=== PATIENT | male | born 1960 | race Caucasian/White ===

== ENCOUNTER → 2018-03-23 11:25 | Outpatient (CLI) | payer OTHER, SELFPAY ==
[2018-03-23 12:26] LABS: Add Manual Diff / Slide Review NO; Basophils Percent Auto 0.8 % (0-2); Eosinophils Percent Auto 3.4 % (2-4); Hematocrit 46.6 % (41-53); Hemoglobin 16.3 g/dL (13.5-17.5); Lymphocytes Percent Auto 31.9 % (25-40); Mean Corpuscular Hemoglobin 33.5 PG (26-34); Mean Corpuscular Volume 95.8 fL (80-100); Monocytes Percent Auto 9.5 % (3-14); Neutrophils Absolute Auto 4800 /uL (3000-5900); Neutrophils Percent Auto 54.4 % (50-75); Platelet Count 183 X10^3/uL (150-400); Red Blood Cell Count 4.86 X10^6/uL (4.5-5.9); Red Cell Distribution Width 14.7 % (11.6-14.8); White Blood Cell Count 8.9 X10^3/uL (4.5-11.0)
[2018-03-23 12:47] LABS: Alanine Aminotransferase 64 IU/L (21-72); Albumin 3.9 g/dL (3.5-5.0); Albumin Globulin Ratio 1.2 (1.0-2.8); Alkaline Phosphatase 58 U/L (38-126); Aspartate Aminotransferase 31 IU/L (17-59); BUN Creatinine Ratio 24.4 (6-22); Bilirubin Total 1.2 mg/dL (0.2-1.3); Calcium 8.9 mg/dL (8.4-10.2); Estimated Glomerular Filt Rate > 60.0 mL/min (>60); Globulin 3.2 g/dL (1.7-4.1); Glucose 110 mg/dL (70-100); HEMOLYSIS < 15 (0-50); Potassium 4.7 mmol/L (3.4-5.1); Sodium 136 mmol/L (137-145); Total Protein 7.1 g/dL (6.3-8.2)
== END ==
PROVIDERS: Family Provider Family Medicine; PCP Family Medicine; Visit Provider Family Medicine
DX: I10 Essential (primary) hypertension (principal)
CPT/HCPCS: 36415; 80053; 85025

== ENCOUNTER 2018-05-09 10:43 | Inpatient (IN) | payer OTHER, SELFPAY ==
[2018-05-09] VITALS (25 sets, daily range): BP systolic 91–145; BP diastolic 55–106; PULSE 105–168; RESP 23–38; TEMP 36.2–36.8; O2SAT 91–98; BMI 56.7
--- NOTE | 2018-05-09 | DI.ECHO.S_ITS ---
[facility]---------+ [facility] +---------+ : : [address] : [place] : : : : [id number] : : : : Phone: [phone] Echocardiogram Report + + :Name: CARLA JIMÉNEZ Study Date: 05/09/2018 Height: 175 in : :[facility] Exam Location: [facility] Weight: 174 lb : : Gender: Male BSA: 3.8 m2 : :: 1960 Age: 57 yrs BP: 111/66 mmHg: :Reason For Study: Atrial fibrillation : :Ordering Physician: Krunal : :Jael Performed By: Luz Maria Page : + + Interpretation Summary The patient was in atrial fibrillation with heart rates between 92-125 bpm during the exam. The left ventricle is normal in size. The ejection fraction is estimated to be 40-45%. Flattened septum is consistent with RV pressure overload. The right ventricle is moderate to severely dilated. Right ventricular systolic function is moderate to severely reduced. There is mild tricuspid regurgitation. The right ventricular systolic pressure is estimated at 41 mmHg assuming a right atrial pressure of 15 mm Hg. Findings were reported to ICU nurse. Procedure: A two-dimensional transthoracic echocardiogram with color flow and Doppler was performed. The study quality was technically difficult. There is no prior echocardiogram noted for this patient. A contrast injection of Definity was performed to improve assessment of LV function. The patient was in atrial fibrillation with heart rates between 92-125 bpm during the exam. Left Ventricle: The left ventricle is normal in size. There is normal left ventricular wall thickness. There is no thrombus. The ejection fraction is estimated to be 40-45%. Flattened septum is consistent with RV pressure overload. Diastolic function could not be accurately assessed due to atrial fibrillation. Right Ventricle: The right ventricle is not well visualized. The right ventricle is moderate to severely dilated. Right ventricular systolic function is moderate to severely reduced. Atria: Both atria are normal in size. There is no Doppler evidence for an interatrial shunt. Mitral Valve: There is mild mitral annular calcification. There is trace mitral regurgitation. Aortic Valve: The aortic valve is trileaflet. The aortic valve opens well. The aortic valve is slightly calcified. There is no aortic valve stenosis. No aortic regurgitation is present. Tricuspid Valve: The tricuspid valve is not well visualized, but is grossly normal. There is mild tricuspid regurgitation. The right ventricular systolic pressure is estimated at 41 mmHg assuming a right atrial pressure of 15 mm Hg. Pulmonic Valve: The pulmonic valve is not well visualized. Great Vessels: The aortic root is normal size. The ascending aorta is normal in size. The aortic arch could not be visualized. The pulmonary is not well visualized. The IVC is dilated (diameter is greater than 2.1 cm) and it collapses less than 50% with a sniff. This suggests a high right atrial pressure of 15 mm Hg. Pericardium/ Pleura There is no pericardial effusion. There is no pleural effusion. MMode/2D Measurements & Calculations LVIDd: 5.2 cm LVOT diam: 2.1 cm LVIDs: 4.0 cm Ao root diam: 3.3 cm FS: 22.9 % asc Aorta Diam: 3.2 cm EPSS: 0.40 cm IVSd: 1.0 cm LVPWd: 0.70 cm LV macdonald. diameter/BSA (cm/m^2): 1.4 LV sys. diameter/BSA (cm/m^2): 1.0 LA A2 area: 27.6 cm2 RA long axis: 5.8 cm LA A4 area: 28.9 cm2 RA area: 27.4 cm2 LA length (vol): 6.9 cm RA vol: 110.2 ml LA vol: 98.1 ml RA : 28.8 ml/m2 LA vol index: 25.7 ml/m2 IVC diam: 2.8 cm Doppler Measurements & Calculations Ao V2 max: 102.9 cm/sec LVOT Max Ric: 70.1 cm/sec Ao V2 mean: 74.9 cm/sec LV V1 max P.0 mmHg Ao max P.2 mmHg LV V1 VTI: 8.5 cm Ao mean P.4 mmHg NEELAM(I,D): 2.5 cm2 Ao V2 VTI: 12.1 cm NEELAM(V,D): 2.4 cm2 sev ratio: 0.70 NEELAM indexed to BSA (cm^2/m^2): 0.64 MV E max ric: 76.6 cm/sec TR max ric: 221.6 cm/sec Med Peak E' Ric: 5.6 cm/sec TR max P.7 mmHg E/E' med: 13.6 PA V2 max: 56.1 cm/sec Lat Peak E' Ric: 9.7 cm/sec PA V2 mean: 33.3 cm/sec E/E' lat: 7.9 PA mean P.50 mmHg E/e' average: 10.7 PA Accel Time: 0.05 sec MV P1/2t: 53.6 msec MV P1/2t max ric: 77.3 cm/sec MVA(P1/2t): 4.1 cm2 Reading Physician:ELIEZER
--- NOTE | 2018-05-09 10:45 | ED.GENADULT ---
HPI - General Adult General Chief complaint: Shortness of Breath/Dyspnea Stated complaint: SHORTNESS OF BREATH,DIZZY,IRREGULAR HEART RATE Time Seen by Provider: 05/09/18 10:44 Source: patient Mode of arrival: ambulatory Limitations: no limitations History of Present Illness HPI narrative: 57-year-old male here for evaluation of not feeling well. Approximately 1 week ago patient was seen by his primary doctor for shortness of breath and was diagnosed with bronchitis. he was given azithromycin which she has completed. He states that for the past week he has not felt very well and over the past 4 days has been worsening with significant worsening 2 days ago. Patient states that over the past week or so he has not been able to climb the stairs in his house without becoming short of breath. He has denies any chest pain or palpitations. No fevers. Related Data Home Medications Medication Instructions Recorded Confirmed aspirin [Aspir-81] 81 mg PO DAILY 05/09/18 05/09/18 fluticasone 1 applic INTRANASAL DAILY 05/09/18 05/09/18 Previous Rx's Medication Instructions Recorded hydrochlorothiazide 50 mg PO QDAY #90 tab 07/22/17 losartan [Cozaar] 50 mg PO QDAY #90 tab 07/22/17 Allergies Allergy/AdvReac Type Severity Reaction Status Date / Time No Known Drug Allergies Allergy Verified 05/09/18 11:32 Review of Systems Constitutional Denies chills, Reports fatigue, Denies fever(s), Denies headache(s) and Reports malaise Eyes Denies blurry vision and Denies diplopia ENT Ears, Nose, Mouth, and Throat: Denies headache(s) Cardiovascular Denies chest pain, Denies chest pain with activity, Reports diaphoresis, Denies syncope, Denies rapid heart rate, Denies pedal edema, Denies irregular heart rhythm, Denies palpitations, Reports dyspnea and Reports dyspnea on exertion Respiratory Denies change in phlegm color, Denies chest congestion, Reports cough, Reports dyspnea, Reports dyspnea on exertion and Denies wheezing Gastrointestinal Gastrointestinal: Denies abdominal pain, Denies constipation, Denies diarrhea, Denies nausea and Denies vomiting Genitourinary Denies dysuria and Denies flank pain Musculoskeletal Denies abnormal gait, Denies myalgias and Denies arthralgias Integumentary/Breasts Denies lesions, Denies rash and Denies wounds Neurologic Denies abnormal gait, Denies behavioral changes, Denies syncope, Denies headache(s), Denies focal weakness and Denies sensory deficit Psychiatric Denies behavioral changes Endocrine Reports fatigue, Denies polyuria and Denies palpitations Hematologic/Lymphatic Denies easy bleeding and Denies easy bruising Allergic/Immunologic Denies urticaria and Denies wheezing FOR[facility]LY [facility], [facility] Medical History Hypertension (Acute) Morbid obesity (Acute) Surgical History History of left knee replacement (Acute ~2007) History of right knee joint replacement (Acute ~2017) Social History Smoking Status: Never smoker Exam Initial Vital Signs Initial Vital Signs: Vital Signs Temperature 97.8 F 05/09/18 10:45 Pulse Rate 137 H 05/09/18 10:45 Respiratory Rate 38 H 05/09/18 10:45 Blood Pressure 123/96 H 05/09/18 10:45 Pulse Oximetry 91 05/09/18 10:45 Const General: cooperative, comfortable, well developed, well groomed and No acute distress Nutritional Appearance: obese Orientation: alert, awake and oriented x3 HENMT Head: normal to inspection, normocephalic and atraumatic Ears: hearing grossly normal bilaterally Nose: external nose normal Chest Chest: normal inspection of the chest and normal palpation of entire chest wall Resp Effort & Inspection: normal respiratory effort, no respiratory distress, no retractions and tachypneic Auscultation: clear to auscultation bilaterally, no rales, no rhonchi and no wheezes Cardio Rate: tachycardic Rhythm: abnormal rhythm irregularly irregular Pulses: radial pulses present GI Inspection: non-distended Palpation: soft, No firm, No guarding and No tender Back/Spine/Pelvis Back: No CVA tenderness Skin Lesions: no lesions Rashes: no rashes Wounds: no wounds Neuro General: alert, awake and oriented x3 Cognition: normal cognition Speech: speech normal Extrem General: normal to inspection, capillary refill normal and normal exam except as noted Psych Appearance: grossly normal, well kempt and not disheveled Course Orders Ordered: ED Orders 05/09/18 10:45 XR chest 1V Stat EKG-12 Lead Stat 05/09/18 10:58 B Type Natriuretic Peptide Stat Complete Blood Count AUTO DIFF Stat Comprehensive Metabolic Panel Stat Partial Thromboplastin Time Stat Prothrombin Time INR Stat Troponin I Stat Diltiazem HCl 125 mg/ Dextrose 125 mls @ 5 mls/hr IV TITRATE WILLIE; Protocol Last Titration: 05/09/18 12:10 Dose: 15 mg/hr, 15 mls/hr Titration: 05/09/18 11:44 Dose: 10 mg/hr, 10 mls/hr Admin: 05/09/18 11:26 Dose: 5 mg/hr, 5 mls/hr Discontinued Medications Aspirin (Aspirin Chew) 324 mg PO NOW ONE Stop: 05/09/18 11:03 Last Admin: 05/09/18 11:06 Dose: 324 mg Diltiazem HCl (Cardizem) 20 mg IV NOW ONE Stop: 05/09/18 11:03 Last Admin: 05/09/18 11:06 Dose: 20 mg Vital Signs - 8 hr 05/09/18 10:45 05/09/18 10:50 05/09/18 10:55 Temperature 97.8 F Pulse Rate 137 H 168 H 162 H Respiratory Rate 38 H 27 H 28 H Blood Pressure 123/96 H Blood Pressure [Right Arm] 145/106 H 119/91 H Pulse Oximetry 91 94 05/09/18 11:00 05/09/18 11:06 05/09/18 11:15 Temperature Pulse Rate 166 H 159 H 152 H Respiratory Rate 28 H 29 H Blood Pressure 116/88 H Blood Pressure [Right Arm] 116/93 H 116/77 Pulse Oximetry 98 95 05/09/18 11:20 05/09/18 11:25 05/09/18 11:26 Temperature Pulse Rate 134 H 127 H 137 H Respiratory Rate 23 25 H Blood Pressure 123/96 H Blood Pressure [Right Arm] 114/68 Pulse Oximetry 98 96 05/09/18 11:30 05/09/18 11:35 05/09/18 11:45 Temperature Pulse Rate 131 H 135 H 137 H Respiratory Rate 24 26 H 24 Blood Pressure Blood Pressure [Right Arm] 116/65 120/79 91/71 Pulse Oximetry 97 94 95 05/09/18 11:55 05/09/18 12:03 05/09/18 12:15 Temperature Pulse Rate 156 H 150 H 148 H Respiratory Rate 26 H 24 26 H Blood Pressure Blood Pressure [Right Arm] 100/76 95/56 L 133/100 H Pulse Oximetry 96 98 95 Medical Decision Making [facility] Narrative Medical decision making narrative: patient in atrial fibrillation. He does not feel the palpitations. Unknown onset. Not a candidate for cardioversion. Does not hypotensive. Was started on Cardizem bolus and then a drip. Heart rate has improved but has remained in atrial fibrillation. He had states that his symptoms have improved somewhat since his heart rate has come down. Chest x-ray shows no signs of pneumonia. Does have slightly elevated troponin however I feel this is secondary to his elevated heart rate. Patient not clinically in heart failure. Does have elevated liver enzymes today. Unsure the exact etiology of these. Patient is not jaundiced. Has no right upper quadrant pain. No change in his medications. Discussed the case with Dr. Elder who is on-call for the patient's primary care doctor today. Will admit the patient to the ICU for continued evaluation and treatment. Informed patient of the decision to admit. He expressed understanding and agreement with this plan. Lab Data Result diagrams: 05/09/18 10:58 05/09/18 10:58 Lab Results 05/09/18 05/09/18 05/09/18 Range/Units 10:58 10:58 10:58 WBC 11.1 H (4.5-11.0) X10^3/uL RBC 4.72 (4.5-5.9) X10^6/uL Hgb 16.2 (13.5-17.5) g/dL Hct 46.6 (41-53) % MCV 98.8 (80-100) fL MCH 34.3 H (26-34) PG MCHC 34.7 (30-36) % RDW 13.9 (11.6-14.8) % Plt Count 141 L (150-400) X10^3/uL Neut % (Auto) 77.6 H (50-75) % Lymph % (Auto) 15.1 L (25-40) % Mccracken % (Auto) 6.7 (3-14) % Eos % (Auto) 0.2 L (2-4) % Baso % (Auto) 0.4 (0-2) % Neut # (Auto) 8600 H (7210-3370) /uL PT 13.9 H (10.1-12.7) SECONDS INR 1.3 (0.9-1.3) APTT 27 (26.4-36.2) SECONDS Sodium 134 L (137-145) mmol/L Potassium 4.1 (3.4-5.1) mmol/L Chloride 97 L (98-107) mmol/L Carbon Dioxide 22 (22-32) mmol/L BUN 22 H (9-20) mg/dL Creatinine 1.00 (0.66-1.25) mg/dL Estimated GFR > 60.0 (>60) mL/min BUN/Creatinine Ratio 22.0 (6-22) Glucose 207 H (70-100) mg/dL Calcium 9.1 (8.4-10.2) mg/dL Total Bilirubin 2.4 H (0.2-1.3) mg/dL AST 206 H (17-59) IU/L ALT 323 H (21-72) IU/L Alkaline Phosphatase 64 (38-126) U/L Troponin I 0.041 H (0.01-0.034) ng/mL B-Natriuretic Peptide 458.0 H (<100) Total Protein 7.2 (6.3-8.2) g/dL Albumin 3.9 (3.5-5.0) g/dL Globulin 3.3 (1.7-4.1) g/dL Albumin/Globulin Ratio 1.2 (1.0-2.8) Imaging Data Chest x-ray: Radiologist's impression: PROCEDURE: XR CHEST 1V INDICATIONS: palpitations and shortness of breath TECHNIQUE: One view of the chest was acquired. COMPARISON: [facility], CHEST 2 VIEW, 11/24/2016, 10:04. [facility], CHEST 2 VIEW, 12/30/2008, 13:04. FINDINGS: Surgical changes and devices: None. Lungs and pleura: No pleural effusions or pneumothorax. Lungs are abnormal with a mild degree of alveolar edema. Mediastinum: Mediastinal contours appear normal. Heart size is at the upper limits of normal. Bones and chest wall: No suspicious bony lesions. Overlying soft tissues appear unremarkable. IMPRESSION: Mild degree of alveolar edema appears present, likely representing a slight degree of congestive heart failure in this clinical circumstance. Dictated by: Kt Nayak M.D. on 05/09/2018 at 11:31 Approved by: Kt Nayak M.D. on 05/09/2018 at 11:41 ECG Data Attestation: I personally reviewed and interpreted this ECG as follows: Prior ECG tracings: not available for review Interpretation: Atrial fibrillation ventricular rate of 155 normal QRS Normal QTC Nonspecific ST T wave changes Discharge Plan Departure Patient Disposition: Admitted As Inpatient Clinical Impression: Atrial fibrillation with rapid ventricular response, Elevated liver enzymes Discharge Date/Time: 05/09/18 12:35 Interventions: ED Discharge Assessment Last Done: 05/09/18 12:15 Admit Date/Time: 05/09/18 12:13 Admit Provider: Krunal Elder
[2018-05-09 11:06] LABS: Add Manual Diff / Slide Review NO; Basophils Percent Auto 0.4 % (0-2); Eosinophils Percent Auto 0.2 % (2-4); Hematocrit 46.6 % (41-53); Hemoglobin 16.2 g/dL (13.5-17.5); Lymphocytes Percent Auto 15.1 % (25-40); Mean Corpuscular HGB Conc 34.7 % (30-36); Mean Corpuscular Hemoglobin 34.3 PG (26-34); Mean Corpuscular Volume 98.8 fL (80-100); Monocytes Percent Auto 6.7 % (3-14); Neutrophils Absolute Auto 8600 /uL (3000-5900); Neutrophils Percent Auto 77.6 % (50-75); Platelet Count 141 X10^3/uL (150-400); Red Blood Cell Count 4.72 X10^6/uL (4.5-5.9); Red Cell Distribution Width 13.9 % (11.6-14.8); White Blood Cell Count 11.1 X10^3/uL (4.5-11.0)
[2018-05-09] MEDS: dilTIAZem 25 MG/5 ML SDV 20 MG IV (11:06)
[2018-05-09] MEDS: ASPIRIN 81 MG TAB 324 MG PO (11:06)
[2018-05-09 11:12] LABS: INR 1.3 (0.9-1.3); Prothrombin Time 13.9 SECONDS (10.1-12.7)
[2018-05-09 11:15] LABS: PTT Partial Thromboplastin Tim 27 SECONDS (26.4-36.2)
[2018-05-09 11:19] LABS: Alanine Aminotransferase 323 IU/L (21-72); Albumin 3.9 g/dL (3.5-5.0); Albumin Globulin Ratio 1.2 (1.0-2.8); Alkaline Phosphatase 64 U/L (38-126); Aspartate Aminotransferase 206 IU/L (17-59); Bilirubin Total 2.4 mg/dL (0.2-1.3); Blood Urea Nitrogen 22 mg/dL (9-20); Calcium 9.1 mg/dL (8.4-10.2); Carbon Dioxide 22 mmol/L (22-32); Chloride 97 mmol/L (98-107); Estimated Glomerular Filt Rate > 60.0 mL/min (>60); Globulin 3.3 g/dL (1.7-4.1); Glucose 207 mg/dL (70-100); HEMOLYSIS 100 (0-50); Potassium 4.1 mmol/L (3.4-5.1); Sodium 134 mmol/L (137-145); Total Protein 7.2 g/dL (6.3-8.2)
[2018-05-09] MEDS: dilTIAZem 125 MG in DEXTROSE 5 % IN WATER 100 ML IV (11:26)
[2018-05-09 11:29] LABS: Troponin I 0.041 ng/mL (0.01-0.034)
--- NOTE | 2018-05-09 13:47 | PC.ADMIT ---
Addendum entered by Ban Alvarado R.N. 05/09/18 14:30: Patient wears CPAP at night. to bring in pt's own CPAP for tonight. Original Note: Admission Note: Patient arrived to room 105 from ER at 1230. Walked from stretcher to bed, steady on feet. Short of breath with any exertion, reports that SOB has improved since arriving at hospital. Oxygen sats 89-90 on RA, sats up 93-96% on 2L NC. Dry cough present. Denies any pain. Afib RVR up to the 160s on arrival, diltiazem gtt infusing at 15 mg/hr. Rate is now currently in the 110s. Oriented to room and to call light/bed/tv controls. The patient,Dennis Bynum,57 y/o, was given written information regarding hospital policies, unit procedures and contact persons. Patient's smoking status: Never smoker. Vital Signs - 8 hr 05/09/18 10:45 05/09/18 10:50 05/09/18 10:55 Temperature 97.8 F Pulse Rate 137 H 168 H 162 H Respiratory Rate 38 H 27 H 28 H Blood Pressure 123/96 H Blood Pressure [Right Arm] 145/106 H 119/91 H Pulse Oximetry 91 94 05/09/18 11:00 05/09/18 11:06 05/09/18 11:15 Temperature Pulse Rate 166 H 159 H 152 H Respiratory Rate 28 H 29 H Blood Pressure 116/88 H Blood Pressure [Right Arm] 116/93 H 116/77 Pulse Oximetry 98 95 05/09/18 11:20 05/09/18 11:25 05/09/18 11:26 Temperature Pulse Rate 134 H 127 H 137 H Respiratory Rate 23 25 H Blood Pressure 123/96 H Blood Pressure [Right Arm] 114/68 Pulse Oximetry 98 96 05/09/18 11:30 05/09/18 11:35 05/09/18 11:45 Temperature Pulse Rate 131 H 135 H 137 H Respiratory Rate 24 26 H 24 Blood Pressure Blood Pressure [Right Arm] 116/65 120/79 91/71 Pulse Oximetry 97 94 95 05/09/18 11:55 05/09/18 12:03 05/09/18 12:15 Temperature Pulse Rate 156 H 150 H 148 H Respiratory Rate 26 H 24 26 H Blood Pressure Blood Pressure [Right Arm] 100/76 95/56 L 133/100 H Pulse Oximetry 96 98 95 05/09/18 12:58 05/09/18 13:40 Temperature 98.2 F Pulse Rate 139 H 116 H Respiratory Rate 24 28 H Blood Pressure 130/93 H 111/66 Blood Pressure [Right Arm] Pulse Oximetry 95
[2018-05-09] MEDS: FUROSEMIDE 20 MG/2 ML VIAL 10 MG IV (14:07)
[2018-05-09] MEDS: ENOXAPARIN 80 MG/0.8 ML SYRINGE SUBCUT (17:04)
[2018-05-09] MEDS: WARFARIN 5 MG TABLET PO (17:04)
[2018-05-09] MEDS: ENOXAPARIN 100 MG/ML SYRINGE SUBCUT (17:04)
--- NOTE | 2018-05-09 17:46 | DI.CT.S_ITS ---
PROCEDURE: CT ANGIO CHEST PE PROTOCOL INDICATIONS: PULMONARY EMBOLISM TECHNIQUE: After the administration of intravenous contrast, 2 mm thick sections acquired from the pulmonary apices to the posterior costophrenic angles. 3-dimensional maximum intensity projection (MIP) coronal and sagittal reformats were then acquired through the thorax. For radiation dose reduction, the following was used: automated exposure control, adjustment of mA and/or kV according to patient size. COMPARISON: [facility], , XR CHEST 1V, 05/09/2018, 10:50. FINDINGS: Image quality: Excellent. Pulmonary arteries: Pulmonary arteries are normal in size, but demonstrate extensive intraluminal filling defects bilaterally diagnostic of central pulmonary embolism including saddle embolism across the bifurcation of the main pulmonary artery. Branches to the upper and lower lobes of the lungs bilaterally contain both occlusive and partially occlusive emboli. The embolus radiodensity is higher than 40 Hounsfield units and therefore likely acute or subacute. Lungs and pleura: Lungs are clear. No pleural effusions or pneumothorax. Central and peripheral airways are patent. Mediastinum: Heart size is normal, without pericardial effusion. No mediastinal or hilar adenopathy. Thoracic aorta is normal in caliber and enhancement. Esophagus is normal in caliber, without hiatal hernia. Bones and chest wall: No suspicious bony lesions. Ribs and thoracic spine appear intact throughout. Thyroid gland appears normal where well visualized. No axillary or supraclavicular adenopathy. Abdomen: Visualized upper abdominal solid organs appear normal in the early arterial phase of enhancement except for the presence of layering small calculi, calcified, within the gallbladder lumen. IMPRESSION: 1. Extensive pulmonary emboli identified including central saddle embolus at the main pulmonary artery bifurcation. The emboli are both occlusive and nonocclusive, and involve the upper and lower lung pulmonary arteries bilaterally. 2. The radiodensity of the emboli suggests acute pulmonary embolus, versus subacute rather than chronic. 3. Incidental finding of small partially calcified gallstones layering within the gallbladder lumen. Note: The ordering healthcare provider was immediately contacted personally and the findings were discussed in detail. Dictated by: Kt Nayak M.D. on 05/09/2018 at 18:40 Approved by: Kt Nayak M.D. on 05/09/2018 at 18:56
--- NOTE | 2018-05-09 18:21 | PC.NURSE ---
Addendum entered by Nelda Gonsalez R.N. 05/09/18 21:28: 2128 - Transport arrived to pick patient up. Report given to ambulance crew and patient left building in good condition with all belongings. Original Note: Addendum entered by Nelda Gonsalez R.N. 05/09/18 20:43: 2040 - Report given to receiving nurse at [facility]. Original Note: Addendum entered by Nelda Gonsalez R.N. 05/09/18 20:02: 1999 - Patient to be transferred to [facility]. Dr. Elder in to see patient and transfer patient. Transport initiated and patient aware of transfer. Dr. Elder states that patient is to be transported on diltiazem gtt that he is currently on. Original Note: 0515 - Dr. Elder notified of ECHO results. See new order for CT to rule out PE.
[2018-05-09] MEDS: dilTIAZem 125 MG in DEXTROSE 5 % IN WATER 100 ML 15 ML IV (18:26)
--- NOTE | 2018-05-09 18:37 | P.HP_ITS ---
History of Present Illness Date Patient Seen: 05/09/18 Time Patient Seen: 13:21 Chief complaint: A-Fib with rapid ventricular response Narrative: Patient is a patient of Dr. Marte who apparently was in his usual state of health MAY BE THE LAST 3 WEEKS. REALLY NOT SURE WHEN THIS ALL STARTED. OVERALL HE HAS BEEN having increasing shortness of breath over the last 3 weeks. He denies any chest pain. Any orthopnea PND. Developed a cough approximately 2 weeks ago. Was seen by Dr. Marte last week. At that time was treated with Zithromax. Had a cough which was somewhat productive. No fevers or chills. Nothing else seems to have changed. Over the last 72 hr he has been progressively short of breath. With marked dyspnea with exertion. Patient took 15 min to get to the 2nd floor of his house. Today got so bad he could not really get around. Was brought to the emergency room. He has not noticed any palpitations. He has continued to have no chest pain. No nausea or vomiting. No leg swelling. Has not been doing anything different. No travels. No other changes. Did have surgery in November of this year. Knee surgery. Otherwise no significant change. Completed rehab without any issue. Was doing well. Patient does not have any cardiac history other than hypertension. Review of systems is otherwise negative for all 12 systems. Negative family history. Patient History Medical History Atrial fibrillation (Acute) Morbid obesity (Acute) Hypertension (Acute) ELSA (obstructive sleep apnea) (Acute) Surgical History History of left knee replacement (Acute ~2007) History of right knee joint replacement (Acute ~2017) Family & Social History Family History: Reviewed 05/09/18 by Krunal Elder MD Social History: household members spouse Prior Living Arrangements House Safety & Behavioral: Feels Safe in Current Yes Environment Been Physically Hurt or No Threatened By a Person Suicidal Ideation Description None Suicide Plan Description No Plan Tobacco & Substance use: Smoking Status Never smoker alcohol intake frequency 3 or more drinks per day Substance Use Type does not use Meds Home Medications Medication Instructions Recorded Confirmed Type hydrochlorothiazide 50 mg PO QDAY #90 tab 07/22/17 05/09/18 Rx losartan [Cozaar] 50 mg PO QDAY #90 tab 07/22/17 05/09/18 Rx aspirin [Aspir-81] 81 mg PO DAILY 05/09/18 05/09/18 History fluticasone 1 applic INTRANASAL DAILY 05/09/18 05/09/18 History Allergies Allergy/AdvReac Type Severity Reaction Status Date / Time No Known Drug Allergies Allergy Verified 05/09/18 11:32 Review of Systems Review of Systems All systems reviewed & are unremarkable except as noted in HPI and below Exam Vital Signs (past 8 hours): - 05/09/18 10:45 05/09/18 10:50 05/09/18 10:55 Temperature 97.8 F Pulse Rate 137 H 168 H 162 H Respiratory Rate 38 H 27 H 28 H Blood Pressure 123/96 H Blood Pressure [Right Arm] 145/106 H 119/91 H Pulse Oximetry 91 94 05/09/18 11:00 05/09/18 11:06 05/09/18 11:15 Temperature Pulse Rate 166 H 159 H 152 H Respiratory Rate 28 H 29 H Blood Pressure 116/88 H Blood Pressure [Right Arm] 116/93 H 116/77 Pulse Oximetry 98 95 05/09/18 11:20 05/09/18 11:25 05/09/18 11:26 Temperature Pulse Rate 134 H 127 H 137 H Respiratory Rate 23 25 H Blood Pressure 123/96 H Blood Pressure [Right Arm] 114/68 Pulse Oximetry 98 96 05/09/18 11:30 05/09/18 11:35 05/09/18 11:45 Temperature Pulse Rate 131 H 135 H 137 H Respiratory Rate 24 26 H 24 Blood Pressure Blood Pressure [Right Arm] 116/65 120/79 91/71 Pulse Oximetry 97 94 95 05/09/18 11:55 05/09/18 12:03 05/09/18 12:15 Temperature Pulse Rate 156 H 150 H 148 H Respiratory Rate 26 H 24 26 H Blood Pressure Blood Pressure [Right Arm] 100/76 95/56 L 133/100 H Pulse Oximetry 96 98 95 05/09/18 12:58 05/09/18 13:40 05/09/18 16:23 Temperature 98.2 F 97.1 F L Pulse Rate 139 H 116 H 105 H Respiratory Rate 24 28 H 27 H Blood Pressure 130/93 H 111/66 100/55 L Blood Pressure [Right Arm] Pulse Oximetry 95 Oxygen Delivery Method Nasal Cannula Oxygen Flow Rate 2 Objective Imaging Echo: My impression: What appears to be decreased ventricular function both right and left with severe right dilation. ECG: No acute changes Labs Result Diagrams: 05/09/18 10:58 05/09/18 10:58 Labs: Laboratory Results - last 24 hr 05/09/18 05/09/18 05/09/18 10:58 10:58 10:58 WBC 11.1 H RBC 4.72 Hgb 16.2 Hct 46.6 MCV 98.8 MCH 34.3 H MCHC 34.7 RDW 13.9 Plt Count 141 L Neut % (Auto) 77.6 H Lymph % (Auto) 15.1 L [place] % (Auto) 6.7 Eos % (Auto) 0.2 L Baso % (Auto) 0.4 Neut # (Auto) 8600 H PT 13.9 H INR 1.3 APTT 27 Sodium 134 L Potassium 4.1 Chloride 97 L Carbon Dioxide 22 BUN 22 H Creatinine 1.00 Estimated GFR > 60.0 BUN/Creatinine Ratio 22.0 Glucose 207 H Calcium 9.1 Total Bilirubin 2.4 H AST 206 H ALT 323 H Alkaline Phosphatase 64 Troponin I 0.041 H B-Natriuretic Peptide 458.0 H Total Protein 7.2 Albumin 3.9 Globulin 3.3 Albumin/Globulin Ratio 1.2 Nasal Screen MRSA (PCR) 05/09/18 12:35 WBC RBC Hgb Hct MCV MCH MCHC RDW Plt Count Neut % (Auto) Lymph % (Auto) [place] % (Auto) Eos % (Auto) Baso % (Auto) Neut # (Auto) PT INR APTT Sodium Potassium Chloride Carbon Dioxide BUN Creatinine Estimated GFR BUN/Creatinine Ratio Glucose Calcium Total Bilirubin AST ALT Alkaline Phosphatase Troponin I B-Natriuretic Peptide Total Protein Albumin Globulin Albumin/Globulin Ratio Nasal Screen MRSA (PCR) Negative for mrsa Assessment & Plan Plan: Assessment/Plan Narrative: pulmonary embolus. On full-dose Lovenox already. Awaiting final result of CT scan. Patient is hemodynamically stable at this point I think we need to make any major changes. Will discuss with internists just to be sure. Discussed with patient. Atrial fibrillation with rapid ventricular response. Overall much more stable. Feeling quite a bit better. Probably secondary to above although not sure why is ejection fracture is down. On Cardizem. Will follow. Suspect will be some time. Will discuss with hose turner tomorrow unless there is a change tonight. Elevated troponin. I suspect this is probably secondary to his heart rate. I do not think he has had an CT his EKG did not show any significant changes although fast heart rate. Will recheck troponin in a.m.. Re-evaluate at that time. Hypertension. Will hold usual medicines and follow. Stable at this time. Elevated BNP. Mild congestive heart failure secondary to probably combination of PE and AFib. Lasix given today. Re-evaluate tomorrow. Code status full code Disposition. Will be here for some period of time. Will discuss with marketing reps [employer] make sure we do not need to transfer but hemodynamically appears stable. Will follow. Quality VTE Deep Vein Thrombosis/Pulmonary Embolism Present on Admission: No
--- NOTE | 2018-05-09 19:38 | PM.DS.1 ---
History of Present Illness Chief complaint: A-Fib with rapid ventricular response Narrative: Patient is a patient of Dr. Marte who apparently was in his usual state of health MAY BE THE LAST 3 WEEKS. REALLY NOT SURE WHEN THIS ALL STARTED. OVERALL HE HAS BEEN having increasing shortness of breath over the last 3 weeks. He denies any chest pain. Any orthopnea PND. Developed a cough approximately 2 weeks ago. Was seen by Dr. Marte last week. At that time was treated with Zithromax. Had a cough which was somewhat productive. No fevers or chills. Nothing else seems to have changed. Over the last 72 hr he has been progressively short of breath. With marked dyspnea with exertion. Patient took 15 min to get to the 2nd floor of his house. Today got so bad he could not really get around. Was brought to the emergency room. He has not noticed any palpitations. He has continued to have no chest pain. No nausea or vomiting. No leg swelling. Has not been doing anything different. No travels. No other changes. Did have surgery in November of this year. Knee surgery. Otherwise no significant change. Completed rehab without any issue. Was doing well. Patient does not have any cardiac history other than hypertension. Review of systems is otherwise negative for all 12 systems. Negative family history. Discharge Providers Date of admission: 05/09/18 12:13 Primary care physician: Uma Gaming DO Discharge provider: Krunal Elder MD Summary Discharge Diagnosis: Pulmonary embolus saddle block New onset atrial fibrillation Congestive heart failure biventricular acute Hypertension Morbid obesity Hospital Course: Admitted patient this afternoon. Had been stable and feeling much better at the time of my visit. Echo was ordered. Echo showed biventricular heart failure with moderate to severe right heart failure. Left heart with EF of 45%. Recommendation for CT. CT showed subtle block emboli involving both right and left pulmonary arteries both superior and inferior branches. Patient with any activity with heart rates into the 140s. Otherwise pressure has been stable. His heart rate is controlled with Cardizem as long as he is laying flat. He is continuing to have no chest pain. Feeling quite a bit better since hospital presence. He was given 20 of Lasix. Otherwise patient has been stable. I discussed case with Dr. Rios who recommends transfer patient. Discussed with cardiothoracic surgeon who feels that tPA would be adequate. And probably a better approach. Discussed with Dr. Vannessa Magdaleno who agrees that patient will require intervention whether that be straight tPA or tPA with directional placement. Due to the fact this is not something that can be done in our institution safely certainly not with angiography. And given the patient's young age and significant cardiac changes we decided for transfer. Discussed with patient. He understands. Patient is stable at this time but will be sent 1 hr was spent with discussion with ECHO and radiologist and consult inpatient. Time Spent with Patient Greater than 30 minutes Exam Vital Signs (past 8 hours): - 05/09/18 11:45 05/09/18 11:55 05/09/18 12:03 Temperature Pulse Rate 137 H 156 H 150 H Respiratory Rate 24 26 H 24 Blood Pressure Blood Pressure [Right Arm] 91/71 100/76 95/56 L Pulse Oximetry 95 96 98 05/09/18 12:15 05/09/18 12:58 05/09/18 13:40 Temperature 98.2 F Pulse Rate 148 H 139 H 116 H Respiratory Rate 26 H 24 28 H Blood Pressure 130/93 H 111/66 Blood Pressure [Right Arm] 133/100 H Pulse Oximetry 95 95 05/09/18 16:23 Temperature 97.1 F L Pulse Rate 105 H Respiratory Rate 27 H Blood Pressure 100/55 L Blood Pressure [Right Arm] Pulse Oximetry Oxygen Delivery Method Nasal Cannula Oxygen Flow Rate 2 Narrative Exam Narrative: Obese male lying in bed no acute distress. Lungs are clear. Heart irregular rate controlled rhythm except with any movement. Abdomen is benign. Extremities were without change. Skin without diaphoresis. Objective Labs Result Diagrams: 05/09/18 10:58 05/09/18 10:58 Labs: Laboratory Results - last 24 hr 05/09/18 05/09/18 05/09/18 10:58 10:58 10:58 WBC 11.1 H RBC 4.72 Hgb 16.2 Hct 46.6 MCV 98.8 MCH 34.3 H MCHC 34.7 RDW 13.9 Plt Count 141 L Neut % (Auto) 77.6 H Lymph % (Auto) 15.1 L [place] % (Auto) 6.7 Eos % (Auto) 0.2 L Baso % (Auto) 0.4 Neut # (Auto) 8600 H PT 13.9 H INR 1.3 APTT 27 Sodium 134 L Potassium 4.1 Chloride 97 L Carbon Dioxide 22 BUN 22 H Creatinine 1.00 Estimated GFR > 60.0 BUN/Creatinine Ratio 22.0 Glucose 207 H Calcium 9.1 Total Bilirubin 2.4 H AST 206 H ALT 323 H Alkaline Phosphatase 64 Troponin I 0.041 H B-Natriuretic Peptide 458.0 H Total Protein 7.2 Albumin 3.9 Globulin 3.3 Albumin/Globulin Ratio 1.2 Nasal Screen MRSA (PCR) 05/09/18 12:35 WBC RBC Hgb Hct MCV MCH MCHC RDW Plt Count Neut % (Auto) Lymph % (Auto) [place] % (Auto) Eos % (Auto) Baso % (Auto) Neut # (Auto) PT INR APTT Sodium Potassium Chloride Carbon Dioxide BUN Creatinine Estimated GFR BUN/Creatinine Ratio Glucose Calcium Total Bilirubin AST ALT Alkaline Phosphatase Troponin I B-Natriuretic Peptide Total Protein Albumin Globulin Albumin/Globulin Ratio Nasal Screen MRSA (PCR) Negative for mrsa Discharge Plan Discharge Plan Transfer to: [facility] Under care of provider: Dr. Vannessa Bah Transportation: Ambulance The receiving facility has agreed to accept transfer and provide medical treatment.: Yes Discharge Med Rec/Prescriptions Discharge Orders: Discharge (Order); Ordered 05/09/18 Ordered By: Krunal Elder Provider Discharge Instructions Oxygen: 2 liter Discharge Data Primary Care Provider: Uma Gaming Attending Provider: Krunal Elder Admit Date/Time: 05/09/18 12:13 Quality VTE Deep Vein Thrombosis/Pulmonary Embolism Present on Admission: No
== END 2018-05-09 21:31 | disposition short-term general hospital (02) | DRG 176 ==
LOC: ED 11:57 → ICU 14:54
PROVIDERS: Admitting Provider Family Medicine; Emergency Provider Emergency Medicine; Family Provider Family Medicine; PCP Family Medicine; Visit Provider Family Medicine
DX: I26.92 Saddle embolus of pulmonary artery without acute cor pulmonale (principal); Z68.43 Body mass index [BMI] 50.0-59.9, adult; I48.91 Unspecified atrial fibrillation; I50.82 Biventricular heart failure; I11.0 Hypertensive heart disease with heart failure; E66.01 Morbid (severe) obesity due to excess calories
CPT/HCPCS: 36591; 71045; 71275; 80053; 83880; 84484; 85025; 85610; 85730; 87797; 93005; 93306; 99285; 99291; J1650; J1940; Q9957; Q9967

== ENCOUNTER → 2018-05-19 11:08 | Outpatient (CLI) | payer OTHER, SELFPAY ==
[2018-05-09 12:37] VITALS: BMI 56.7
[2018-05-19 11:35] LABS: Add Manual Diff / Slide Review NO; Basophils Percent Auto 0.8 % (0-2); Eosinophils Percent Auto 3.1 % (2-4); Hematocrit 44.5 % (41-53); Hemoglobin 15.4 g/dL (13.5-17.5); Lymphocytes Percent Auto 30.1 % (25-40); Mean Corpuscular HGB Conc 34.6 % (30-36); Mean Corpuscular Hemoglobin 34.5 PG (26-34); Mean Corpuscular Volume 99.6 fL (80-100); Monocytes Percent Auto 10.2 % (3-14); Neutrophils Absolute Auto 3600 /uL (3000-5900); Neutrophils Percent Auto 55.8 % (50-75); Platelet Count 246 X10^3/uL (150-400); Red Blood Cell Count 4.46 X10^6/uL (4.5-5.9); Red Cell Distribution Width 13.8 % (11.6-14.8); White Blood Cell Count 6.5 X10^3/uL (4.5-11.0)
[2018-05-19 12:02] LABS: BUN Creatinine Ratio 17.8 (6-22); Blood Urea Nitrogen 16 mg/dL (9-20); Calcium 8.7 mg/dL (8.4-10.2); Carbon Dioxide 28 mmol/L (22-32); Chloride 103 mmol/L (98-107); Cholesterol 139 mg/dL (140-199); Estimated Glomerular Filt Rate > 60.0 mL/min (>60); Glucose 112 mg/dL (70-100); HDL Cholesterol 33 mg/dL (40-60); HEMOLYSIS < 15 (0-50); LDL Cholesterol Calculated 84 mg/dL (<100); Potassium 4.7 mmol/L (3.4-5.1); Sodium 139 mmol/L (137-145); Triglycerides 108 mg/dL (35-150)
== END ==
PROVIDERS: PCP Family Medicine; Visit Provider Internal Medicine Cardiovascular Disease
DX: I10 Essential (primary) hypertension (principal)
CPT/HCPCS: 36415; 80048; 80061; 85025

== ENCOUNTER → 2018-07-22 15:07 | Outpatient (CLI) | payer OTHER, SELFPAY ==
[2018-05-09 12:37] VITALS: BMI 56.7
[2018-07-22 16:14] LABS: BUN Creatinine Ratio 25.6 (6-22); Blood Urea Nitrogen 23 mg/dL (9-20); Calcium 9.3 mg/dL (8.4-10.2); Carbon Dioxide 28 mmol/L (22-32); Chloride 105 mmol/L (98-107); Estimated Glomerular Filt Rate > 60.0 mL/min (>60); Glucose 123 mg/dL (70-100); HEMOLYSIS 24 (0-50); Sodium 145 mmol/L (137-145)
[2018-07-22 16:28] LABS: Potassium 5.8 mmol/L (3.4-5.1)
== END ==
PROVIDERS: Family Provider Family Medicine; PCP Family Medicine; Visit Provider Internal Medicine Cardiovascular Disease
DX: I10 Essential (primary) hypertension (principal)
CPT/HCPCS: 36415; 80048

== ENCOUNTER → 2018-07-25 15:23 | Outpatient (CLI) | payer OTHER, SELFPAY ==
[2018-05-09 12:37] VITALS: BMI 56.7
[2018-07-25 16:03] LABS: Blood Urea Nitrogen 20 mg/dL (9-20); Carbon Dioxide 23 mmol/L (22-32); Chloride 107 mmol/L (98-107); Estimated Glomerular Filt Rate > 60.0 mL/min (>60); Glucose 116 mg/dL (70-100); HEMOLYSIS 28 (0-50); Potassium 4.4 mmol/L (3.4-5.1); Sodium 140 mmol/L (137-145)
== END ==
PROVIDERS: Family Provider Family Medicine; PCP Family Medicine; Visit Provider Internal Medicine Cardiovascular Disease
DX: E78.5 Hyperlipidemia, unspecified (principal)
CPT/HCPCS: 36415; 80048

== ENCOUNTER → 2019-02-02 12:08 | Outpatient (CLI) | payer OTHER, SELFPAY ==
[2018-05-09 12:37] VITALS: BMI 56.7
[2019-02-02 12:43] LABS: Add Manual Diff / Slide Review NO; Basophils Absolute Auto 0 /uL (0-100); Basophils Percent Auto 0.6 % (0-2); Eosinophils Absolute Auto 200 /uL (0-450); Hematocrit 50.4 % (41-53); Lymphocytes Absolute Auto 2600 /uL (1100-4500); Lymphocytes Percent Auto 37.1 % (25-40); Mean Corpuscular HGB Conc 33.8 % (30-36); Mean Corpuscular Hemoglobin 32.2 PG (26-34); Mean Corpuscular Volume 95.5 fL (80-100); Monocytes Absolute Auto 600 /uL (0-900); Monocytes Percent Auto 8.6 % (3-14); Neutrophils Absolute Auto 3500 /uL (1500-7000); Neutrophils Percent Auto 50.7 % (50-75); Platelet Count 170 X10^3/uL (150-400); Red Blood Cell Count 5.28 X10^6/uL (4.5-5.9); Red Cell Distribution Width 14.7 % (11.6-14.8); White Blood Cell Count 6.9 X10^3/uL (4.5-11.0)
[2019-02-02 13:02] LABS: BUN Creatinine Ratio 21.1 (6-22); Blood Urea Nitrogen 19 mg/dL (9-20); Calcium 9.1 mg/dL (8.4-10.2); Carbon Dioxide 27 mmol/L (22-32); Chloride 101 mmol/L (98-107); Estimated Glomerular Filt Rate > 60.0 mL/min (>60); Glucose 105 mg/dL (70-100); HEMOLYSIS 15 (0-50); Sodium 138 mmol/L (137-145)
== END ==
PROVIDERS: PCP Family Medicine; Visit Provider Internal Medicine Cardiovascular Disease
DX: I10 Essential (primary) hypertension (principal)
CPT/HCPCS: 36415; 80048; 85025

== ENCOUNTER → 2019-07-18 15:58 | Outpatient (CLI) | payer OTHER, SELFPAY ==
[2018-05-09 12:37] VITALS: BMI 56.7
[2019-07-18 17:18] LABS: BUN Creatinine Ratio 27.5 (6-22); Blood Urea Nitrogen 22 mg/dL (9-20); Calcium 9.4 mg/dL (8.4-10.2); Carbon Dioxide 23 mmol/L (22-32); Chloride 99 mmol/L (98-107); Estimated Glomerular Filt Rate > 60.0 mL/min (>60); Glucose 119 mg/dL (70-100); Potassium 4.8 mmol/L (3.4-5.1); Sodium 136 mmol/L (137-145)
[2019-07-18 17:19] LABS: HEMOLYSIS 80 (0-50)
== END ==
PROVIDERS: PCP Family Medicine; Visit Provider Internal Medicine Cardiovascular Disease
DX: I10 Essential (primary) hypertension (principal)
CPT/HCPCS: 36415; 80048

== ENCOUNTER 2019-12-29 13:28 | Emergency (ER) | payer OTHER, SELFPAY ==
[2018-05-09 12:37] VITALS: BMI 56.7
[2019-12-29] VITALS (24 sets, daily range): BP systolic 97–149; BP diastolic 60–95; PULSE 101–139; RESP 17–34; TEMP 37; O2SAT 95–100
--- NOTE | 2019-12-29 13:50 | DI.RAD.S_ITS ---
PROCEDURE: XR CHEST 1V INDICATIONS: suspected sepsis TECHNIQUE: One view of the chest was acquired. COMPARISON: [facility], CR, XR CHEST 1V, 05/09/2018, 10:50. FINDINGS: Surgical changes and devices: None. Lungs and pleura: Interstitial prominence is identified within the hilar regions. There is no consolidation. No effusion is identified. Elevation of diaphragm is similar to previous exam. Mediastinum: Mediastinal contours appear normal. Heart size is enlarged Bones and chest wall: No suspicious bony lesions. Overlying soft tissues appear unremarkable. IMPRESSION: Bilaterally with associated mild vascular congestion may represent pulmonary edema. No definite pneumonia. Dictated by: Mikael Vu M.D. on 12/29/2019 at 13:30 Approved by: Mikael Vu M.D. on 12/29/2019 at 13:32
[2019-12-29 13:55] LABS: Add Manual Diff / Slide Review NO; Basophils Absolute Auto 100 /uL (0-100); Basophils Percent Auto 0.5 % (0-2); Eosinophils Absolute Auto 100 /uL (0-450); Eosinophils Percent Auto 0.7 % (2-4); Hematocrit 50.6 % (41-53); Hemoglobin 17.4 g/dL (13.5-17.5); Lymphocytes Absolute Auto 2500 /uL (1100-4500); Lymphocytes Percent Auto 21.7 % (25-40); Mean Corpuscular HGB Conc 34.4 % (30-36); Mean Corpuscular Hemoglobin 34.8 PG (26-34); Mean Corpuscular Volume 101.1 fL (80-100); Monocytes Absolute Auto 800 /uL (0-900); Monocytes Percent Auto 6.6 % (3-14); Neutrophils Absolute Auto 8200 /uL (1500-7000); Neutrophils Percent Auto 70.5 % (50-75); Platelet Count 142 X10^3/uL (150-400); Red Blood Cell Count 5.01 X10^6/uL (4.5-5.9); Red Cell Distribution Width 14.2 % (11.6-14.8); White Blood Cell Count 11.6 X10^3/uL (4.5-11.0)
--- NOTE | 2019-12-29 13:57 | DI.US.S_ITS ---
PROCEDURE: US PERIPH VENOUS LOW EXTREM LT INDICATIONS: PAIN, SWELLING, ERYTHEMA, HX OF DVT AND PE TECHNIQUE: Real-time imaging, as well as color and pulse Doppler interrogation, were performed of the lower extremity deep veins from the inguinal ligament to the popliteal fossa. COMPARISON: None. FINDINGS: This examination was technically challenging related to the patient's large body habitus. No occlusive thrombus is appreciated. The common femoral, femoral and popliteal veins are normally compressible, and free of intraluminal thrombus. Color and pulse Doppler demonstrate normal phasic intraluminal flow. There is normal augmentation response to distal compression maneuver. IMPRESSION: No occlusive deep vein thrombosis of the left lower extremity. Dictated by: Mikael Vu M.D. on 12/29/2019 at 14:41 Approved by: Mikael Vu M.D. on 12/29/2019 at 14:45
[2019-12-29 14:01] LABS: INR 2.4 (0.9-1.3); Prothrombin Time 27.3 SECONDS (10.1-12.7)
--- NOTE | 2019-12-29 14:03 | ED.EXTPRO ---
HPI - Extremity Problem General Chief complaint: Extremity Problem,Nontraumatic Stated complaint: left lower leg swollen/red and very painful Time Seen by Provider: 12/29/19 13:29 Source: patient Mode of arrival: Ambulatory Limitations: no limitations History of Present Illness HPI Narrative: 59-year-old male of AFib, DVT and pulmonary embolism on Xarelto presents with a chief complaint of severe left lower extremity pain, redness and warmth gradually worsening over the past day. He states he felt fine in his normal state of health yesterday with exception of some subjective fever and chills. He denies any chest pain but now complains of shortness of breath with exertion. He takes his pulse every day because he is generally asymptomatic of his AFib and states that few times last week he was up in the 130s but for the past few days he has been in his normal rate. He denies any lower extremity injury and states he has taken all of his medications as directed for quite sometime. MD Complaint: extremity pain and extremity swelling Onset (ago): day(s) Pain Consistency: constant Location: left Quality: burning and aching Radiation: none Relieving factors: nothing Exacerbating factors: weight bearing and walking Associated symptoms: shortness of breath and fever Related Data Home Medications Medication Instructions Recorded Confirmed fluticasone propionate 1 applic INTRANASAL DAILY 05/09/18 12/29/19 Respironics DreamStation CPAP #1 [id number] 06/28/19 12/29/19 Dayquil 1 dose PO PRN PRN 12/29/19 12/29/19 Nyquil 1 dose PO PRN PRN 12/29/19 12/29/19 furosemide 60 mg PO DAILY PRN 12/29/19 12/29/19 losartan [Cozaar] 50 mg PO QPM 12/29/19 12/29/19 metoprolol succinate 150 mg PO BID 12/29/19 12/29/19 rivaroxaban [Xarelto] 20 mg PO DAILY 12/29/19 12/29/19 Allergies Allergy/AdvReac Type Severity Reaction Status Date / Time No Known Drug Allergies Allergy Verified 12/29/19 13:39 Review of Systems Constitutional Constitutional: Reports body ache(s), Reports chills, Reports fatigue, Reports fever(s), Denies frequent falls, Denies lethargy and Denies weakness Eyes Eyes: Denies change in vision, Denies eye discharge, Denies irritation and Denies loss of vision ENT Ears, Nose, Mouth, and Throat: Denies change in voice, Denies dizziness, Denies neck pain, Denies sore throat and Denies throat swelling Cardiovascular Cardiovascular: Denies chest pain, Reports irregular heart rhythm, Denies lightheadedness, Denies palpitations, Reports dyspnea, Reports dyspnea on exertion and Denies orthopnea Respiratory Respiratory: Denies cough, Reports dyspnea, Reports dyspnea on exertion and Denies wheezing Gastrointestinal Gastrointestinal: Denies abdominal pain, Denies change in bowel habits, Denies diarrhea, Denies nausea and Denies vomiting Genitourinary Genitourinary: Denies hematuria, Denies flank pain, Denies urinary incontinence and Denies urinary urgency Musculoskeletal Musculoskeletal: Denies back pain, Denies muscle weakness, Denies neck pain, Denies numbness and Denies tingling Integumentary/Breasts Skin/Breast: Denies pruritus, Denies erythema, Denies rash, Reports skin pain, Reports skin swelling and Denies wounds Neurologic Neurologic: Denies behavioral changes, Denies confusion, Denies dizziness, Denies frequent falls, Denies loss of vision, Denies numbness, Denies tingling and Denies weakness Psychiatric Psychiatric: Denies anxiety, Denies behavioral changes, Denies confusion, Denies depression, Denies homicidal ideation and Denies suicidal ideation Endocrine Endocrine: Reports fatigue, Denies flushing and Denies palpitations Hematologic/Lymphatic Hematologic/Lymphatic: Denies easy bruising Allergic/Immunologic Allergic/Immunologic: Denies urticaria, Denies throat swelling and Denies wheezing Patient History Medical History Atrial fibrillation (Acute) Hypertension (Acute) Morbid obesity (Acute) ELSA (obstructive sleep apnea) (Acute) Surgical History History of left knee replacement (Acute ~2007) History of right knee joint replacement (Acute ~2018) Social History household members: spouse Smoking Status: Never smoker Smoking Status: Never smoker alcohol intake frequency: 3 or more drinks per day Substance Use Type: does not use Exam Narrative Exam Narrative: GENERAL: [59] year old patient appears stated age. Well-nourished, well-developed patient, in moderate distress becoming short of breath with exertion HEAD: Atraumatic. Normocephalic. EYES: Pupils equal round and reactive. Extraocular motions intact. No scleral icterus. No injection or drainage. ENT: Nose without bleeding, purulent drainage. Throat without erythema, tonsillar hypertrophy or exudate. Airway patent. NECK: Trachea midline. Non tender CARDIOVASCULAR: Tachycardic and irregular rhythm without murmurs, gallops, or rubs. RESPIRATORY: Clear to auscultation. Breath sounds equal bilaterally. No wheezes, rales, or rhonchi. GASTROINTESTINAL: Abdomen soft, non-tender, nondistended. EXTREMITIES: Left lower extremity with some noted swelling but significantly erythematous, tender and warm BACK: Nontender without deformity or crepitance. No flank tenderness. NEURO: AOx3. SKIN: No rash or erythema of visible areas other than that which is stated above Initial Vital Signs Initial Vital Signs: Vital Signs Temperature 98.6 F 12/29/19 13:39 Pulse Rate 106 H 12/29/19 13:39 Respiratory Rate 17 12/29/19 13:39 Blood Pressure 111/74 12/29/19 13:39 Pulse Oximetry 97 12/29/19 13:39 Procedures Cardioversion Consent Signed: Yes Indication: rapid atrial fibrillation Number of attempts (shocks): 3 Joules used: 150 and 200 Cardiac rhythm post-cardioversion: rapid atrial fib Procedural Sedation Consent signed: Yes Time out performed: Yes Indication: cardioversion ASA Class: III Mallampati Airway Classification: Class III Preparation: case monitor applied, pulse oximeter, capnometry used, suction/airway equipment at bedside and IV secured IV Propofol dose (mg): 80 Intraservice time/total sedation time (min): 10 ED Sedation Level: Moderate (Concious) Patient Tolerated Procedure: Well Complications: hypoventilation Interventions: Airway repositioned Course Course Course Narrative: Initially discussed with patient's own planning engineer whom is very comfortable with our attempted cardioversion. Orders Ordered: ED Orders 12/29/19 13:48 Complete Blood Count AUTO DIFF Stat Comprehensive Metabolic Panel Stat Lactate (Lactic Acid) Stat Lipase Stat NT-proBNP (BNP-Adult 18+) Stat Partial Thromboplastin Time Stat Procalcitonin Stat Prothrombin Time INR Stat Troponin & CK Cardiac Panel Stat 02/21/20 13:50 XR chest 1V Stat EKG-12 Lead Stat RT Consult Eval and Treat Now 12/29/19 13:57 US periph venous low extrem lt Stat 12/29/19 14:07 Blood Culture Stat 12/29/19 17:44 CT angio chest PE protocol Stat Esmolol HCl (Brevibloc) 2.5 gm in 250 mls @ 60 mls/hr IV TITRATE WILLIE; Protocol Last Admin: 12/29/19 19:44 Dose: 50 mcg/kg/min, 60 mls/hr Documented by: DIVYA Discontinued Medications Diltiazem HCl (Cardizem) 10 mg IV NOW ONE Stop: 12/29/19 15:08 Last Admin: 12/29/19 15:13 Dose: 10 mg Documented by: DIVYA Vancomycin HCl/Dextrose (Vancomycin) 2,000 mg in 400 mls @ 200 mls/hr IV NOW ONE Stop: 12/29/19 19:04 Last Admin: 12/29/19 17:00 Dose: 200 mls/hr Documented by: DIVYA Propofol (Diprivan) 200 mg 1 mg/kg (200 mg) IV NOW ONE Stop: 12/29/19 16:02 Last Admin: 12/29/19 17:05 Dose: 80 mg Documented by: DIVYA Consultations Consultation #1: Ronald - reviewed case and recommends cardvioversion attempt Cardio paged - 3 attempts to cardiovert are unsuccesful. Dr. Thompson reviews the chart and states he is actually in chronic atrial fib. Recommends no ongoing rate control, treat sepsis Discussed case with patient PCP (Dr. Marte) whom states patient is best served at facility with inpatient cardiology and requests transfer to [facility]. Call back to Donna whom recommends Esmolol drip and transfer Dr. Zapata happy to accept at [facility] Patient and family understand the plan and are in agreement. Vital Signs Vital signs: Vital Signs - 8 hr 12/29/19 13:39 12/29/19 13:45 12/29/19 14:00 Temperature 98.6 F Pulse Rate 106 H 127 H 139 H Respiratory Rate 17 29 H 29 H Blood Pressure 111/74 Blood Pressure [Left Wrist] 137/73 124/60 Pulse Oximetry 97 98 98 12/29/19 15:13 12/29/19 15:39 12/29/19 16:51 Temperature Pulse Rate 136 H 124 H 118 H Respiratory Rate 30 H 18 20 Blood Pressure 116/79 Blood Pressure [Left Wrist] 116/79 113/74 119/65 Pulse Oximetry 98 95 100 12/29/19 16:55 12/29/19 16:58 12/29/19 16:59 Temperature Pulse Rate 116 H 127 H 127 H Respiratory Rate 24 Blood Pressure Blood Pressure [Left Wrist] 119/65 Pulse Oximetry 99 12/29/19 17:01 12/29/19 17:03 12/29/19 17:06 Temperature Pulse Rate 117 H 107 H 115 H Respiratory Rate 34 H 29 H 31 H Blood Pressure Blood Pressure [Left Wrist] 104/66 103/78 107/71 Pulse Oximetry 98 98 97 12/29/19 17:10 12/29/19 17:15 12/29/19 17:19 Temperature Pulse Rate 107 H 117 H 106 H Respiratory Rate 20 28 H 26 H Blood Pressure Blood Pressure [Left Wrist] 97/61 102/67 99/65 Pulse Oximetry 98 98 99 12/29/19 17:24 12/29/19 18:00 12/29/19 18:56 Temperature Pulse Rate 125 H 101 H 115 H Respiratory Rate 26 H 26 H 18 Blood Pressure Blood Pressure [Left Wrist] 109/68 116/88 140/71 Pulse Oximetry 99 96 99 MDM - Extremity (Nontraumatic) Lab Data Result diagrams: 12/29/19 13:48 12/29/19 13:48 Labs: Lab Results 12/29/19 12/29/19 12/29/19 Range/Units 13:48 13:48 13:48 WBC 11.6 H (4.5-11.0) X10^3/uL RBC 5.01 (4.5-5.9) X10^6/uL Hgb 17.4 (13.5-17.5) g/dL Hct 50.6 (41-53) % MCV 101.1 H (80-100) fL MCH 34.8 H (26-34) PG MCHC 34.4 (30-36) % RDW 14.2 (11.6-14.8) % Plt Count 142 L (150-400) X10^3/uL Neut % (Auto) 70.5 (50-75) % Lymph % (Auto) 21.7 L (25-40) % Granville % (Auto) 6.6 (3-14) % Eos % (Auto) 0.7 L (2-4) % Baso % (Auto) 0.5 (0-2) % Neut # (Auto) 8200 H (6696-4310) /uL Lymph # (Auto) 2500 (1897-5446) /uL Granville # (Auto) 800 (0-900) /uL Eos # (Auto) 100 (0-450) /uL Baso # (Auto) 100 (0-100) /uL PT 27.3 H (10.1-12.7) SECONDS INR 2.4 H (0.9-1.3) APTT 40 H D (26.4-36.2) SECONDS Sodium 137 (137-145) mmol/L Potassium 3.8 (3.4-5.1) mmol/L Chloride 101 (98-107) mmol/L Carbon Dioxide 26 (22-32) mmol/L BUN 20 (9-20) mg/dL Creatinine 1.00 (0.66-1.25) mg/dL Estimated GFR > 60.0 (>60) mL/min BUN/Creatinine Ratio 20.0 (6-22) Glucose 184 H (80-110) mg/dL Lactate (0.7-2.1) mmol/L Calcium 9.0 (8.4-10.2) mg/dL Total Bilirubin 2.0 H (0.2-1.3) mg/dL AST 25 (17-59) IU/L ALT 26 (<50) IU/L Alkaline Phosphatase 86 (38-126) U/L Total Creatine Kinase 47 L (55-170) U/L CK-MB (CK-2) TNP CK-MB (CK-2) Rel Index TNP Troponin I < 0.012 (0.01-0.034) ng/mL NT-Pro-B Natriuret Pep 1600 H (<125) pg/mL Total Protein 7.9 (6.3-8.2) g/dL Albumin 4.0 (3.5-5.0) g/dL Globulin 3.9 (1.7-4.1) g/dL Albumin/Globulin Ratio 1.0 (1.0-2.8) Lipase 242 (23-300) U/L Procalcitonin (<0.5) ng/mL 12/29/19 12/29/19 12/29/19 Range/Units 13:48 13:48 16:10 WBC (4.5-11.0) X10^3/uL RBC (4.5-5.9) X10^6/uL Hgb (13.5-17.5) g/dL Hct (41-53) % MCV (80-100) fL MCH (26-34) PG MCHC (30-36) % RDW (11.6-14.8) % Plt Count (150-400) X10^3/uL Neut % (Auto) (50-75) % Lymph % (Auto) (25-40) % Granville % (Auto) (3-14) % Eos % (Auto) (2-4) % Baso % (Auto) (0-2) % Neut # (Auto) (3406-3752) /uL Lymph # (Auto) (8780-7871) /uL Granville # (Auto) (0-900) /uL Eos # (Auto) (0-450) /uL Baso # (Auto) (0-100) /uL PT (10.1-12.7) SECONDS INR (0.9-1.3) APTT (26.4-36.2) SECONDS Sodium (137-145) mmol/L Potassium (3.4-5.1) mmol/L Chloride (98-107) mmol/L Carbon Dioxide (22-32) mmol/L BUN (9-20) mg/dL Creatinine (0.66-1.25) mg/dL Estimated GFR (>60) mL/min BUN/Creatinine Ratio (6-22) Glucose (80-110) mg/dL Lactate 2.5 H 1.7 (0.7-2.1) mmol/L Calcium (8.4-10.2) mg/dL Total Bilirubin (0.2-1.3) mg/dL AST (17-59) IU/L ALT (<50) IU/L Alkaline Phosphatase (38-126) U/L Total Creatine Kinase (55-170) U/L CK-MB (CK-2) CK-MB (CK-2) Rel Index Troponin I (0.01-0.034) ng/mL NT-Pro-B Natriuret Pep (<125) pg/mL Total Protein (6.3-8.2) g/dL Albumin (3.5-5.0) g/dL Globulin (1.7-4.1) g/dL Albumin/Globulin Ratio (1.0-2.8) Lipase (23-300) U/L Procalcitonin 2.75 H (<0.5) ng/mL Imaging Data CT scan - chest: Radiologist's Impression: Chart Viewer Diagnostics DATE TYPE STATUS AUTHOR Hx 12/29/19 17:44 CatyDamien [email or web address] 12/29/19 13:57 Mikael Vu 12/29/19 13:50 Mikael Vu 05/09/18 17:46 Kt Nayak 05/09/18 12:13 05/09/18 10:45 Kt Nayak 05/09/18 00:00 Dougie Santos Michael L 59, 1960 REG ER, [facility] ED R01 200kg Extremity Problem,Nontraumatic Search Chart No Data to Display NF - Not included in interaction checking ONSET ~2007 Today 18:56 Dennis Bynum 59 M 1960 [place] [address] CT Scan Report Signed Patient: Dennis Bynum R#: [id number] : 9Acct:[id number] Age/Sex: 59 / MDate of Service: 12/29/19 Loc: ED Accession Number: [id number] Procedure: CT angio chest PE protocol Ordering Provider: Filipe Engel D.O. PROCEDURE: CT ANGIO CHEST PE PROTOCOL INDICATIONS: persistent tachycardia, SOB, hx PE TECHNIQUE: After the administration of intravenous contrast, 2 mm thick sections acquired from the pulmonary apices to the posterior costophrenic angles. 3-dimensional maximum intensity projection (MIP) coronal and sagittal reformats were then acquired through the thorax. For radiation dose reduction, the following was used: automated exposure control, adjustment of mA and/or kV according to patient size. COMPARISON: [facility], CR, XR CHEST 1V, 12/29/2019, 14:02. [facility], CT, CT ANGIO CHEST PE PROTOCOL, 05/09/2018, 17:50. FINDINGS: Image quality: Somewhat suboptimal opacification of central pulmonary arteries. Pulmonary arteries: Pulmonary outflow tract is prominent. No large saddle pulmonary emboli. Small intraluminal filling defects may be present in subsegmental pulmonary arteries bilaterally. Lungs and pleura: Lungs are clear. No pleural effusions or pneumothorax. Central and peripheral airways are patent. Mediastinum: Heart size is normal, without pericardial effusion. No mediastinal or hilar adenopathy. Thoracic aorta is normal in caliber and enhancement. Esophagus is normal in caliber. Small hiatal hernia. Bones and chest wall: No suspicious bony lesions. Ribs and thoracic spine appear intact throughout. Thyroid gland is normal. No axillary or supraclavicular adenopathy. Abdomen: Visualized upper abdominal solid organs appear normal in the early arterial phase of enhancement. IMPRESSION: 1. No large saddle pulmonary emboli. Small subsegmental pulmonary arteries may be present bilaterally. The exam is limited due to somewhat suboptimal opacification of central pulmonary arteries. 2. Cholelithiasis. Dictated by: Steven Byrne M.D. on 12/29/2019 at 18:33 Approved by: Steven Byrne M.D. on 12/29/2019 at 18:45 Critical Care Time Critical Care Time Critical Care Time: Yes Total Critical Care Time: 45 Attestation: The high probability of a clinically significant, sudden or life threatening deterioration of the [CV] system(s) required my full and direct attention, intervention and personal management. The aggregate critical care time was [45] minutes. This time is in addition to time spent performing reported procedures but includes the following: [x] Data Review and interpretation [x] Patient assessment and monitoring of vital signs [x] Documentation [x] Medication orders and management Discharge Plan Departure Patient Disposition: [facility] Clinical Impression: Cellulitis of left leg, Atrial fibrillation with rapid ventricular response Prescriptions: No Action fluticasone propionate 16 GM spray,suspension 1 applic Intranasal DAILY RF: 0 metoprolol succinate 100 mg tablet extended release 24 hr 150 mg PO BID RF: 0 furosemide 20 mg tablet 60 mg PO DAILY PRN (Reason: FLUID RETENTION) RF: 0 Xarelto 20 mg tablet 20 mg PO DAILY RF: 0 losartan [Cozaar] 50 MG tablet 50 mg PO QPM RF: 0 Dayquil 1 dose PO PRN PRN (Reason: Cold Symptoms) RF: 0 Nyquil 1 dose PO PRN PRN (Reason: Cold Symptoms) RF: 0 (DME) Respironics DreamStation CPAP Qty: 1 RF: 0 Referrals: Dennis Marte MD [Primary Care Provider] -
[2019-12-29 14:04] LABS: PTT Partial Thromboplastin Tim 40 SECONDS (26.4-36.2)
[2019-12-29 14:09] LABS: Lactate (Lactic Acid) 2.5 mmol/L (0.7-2.1)
[2019-12-29 14:10] LABS: Alanine Aminotransferase 26 IU/L (<50); Alkaline Phosphatase 86 U/L (38-126); Aspartate Aminotransferase 25 IU/L (17-59); Blood Urea Nitrogen 20 mg/dL (9-20); Carbon Dioxide 26 mmol/L (22-32); Chloride 101 mmol/L (98-107); Creatine Kinase 47 U/L (55-170); Estimated Glomerular Filt Rate > 60.0 mL/min (>60); Globulin 3.9 g/dL (1.7-4.1); Glucose 184 mg/dL (80-110); HEMOLYSIS < 15 (0-50); Lipase 242 U/L (23-300); Potassium 3.8 mmol/L (3.4-5.1); Sodium 137 mmol/L (137-145); Total Protein 7.9 g/dL (6.3-8.2)
--- NOTE | 2019-12-29 14:11 | PC.NURSE ---
red skin on right lower leg marked w/ skin marker. + circumferential. Hot to touch. Difficulty feeling pulses in feet. Will attempt w/ dopplar.
--- NOTE | 2019-12-29 14:13 | PC.NURSE ---
Pt is very short of breath w/ exertion, RR 40s upon entry to ED w/ sat 95% on room air. RR 30 at rest in stretcher. Unable to lie flat. Pt is unaware he is in rapid afib but EKGs show h/o afib. Unknown if always in afib or paraxismal.
[2019-12-29 14:21] LABS: Troponin I < 0.012 ng/mL (0.01-0.034)
[2019-12-29 14:35] LABS: Procalcitonin 2.75 ng/mL (<0.5)
[2019-12-29 15:10] LABS: NT-proBNP (BNP-Adult 18+) 1600 pg/mL (<125)
[2019-12-29] MEDS: dilTIAZem 5 MG/ML SDV 10 MG IV (15:13)
[2019-12-29 15:52] LABS: Reflexed Lactate in 2 Hours Y
[2019-12-29 16:29] LABS: Lactate 2HR (Lactic Acid Rflx) 1.7 mmol/L (0.7-2.1)
[2019-12-29] MEDS: VANCOMYCIN 2,000 MG/400 ML PIGGYBACK 200 MG IV (17:00)
[2019-12-29] MEDS: propofoL 200 MG/20 ML VIAL IV (17:05)
--- NOTE | 2019-12-29 17:13 | RT ---
Assisted with cardioversion for Afib. Patient with history of ELSA, using a CPAP for sleep. Placed on 2 L NC with ETCO2 as well. SPO2 on 2 l running 98-99% ETCO2 at 38 before sedation. Holding 30-42 during sedation with jaw thrust. Jaw thrust held after each shock, patient shocked 3 X's continued to hold jaw thrust for about 5 mins after last shock till patient rousing and starting to talk. Once awake, ETCO2 running 38 again and SPO2 at 99%. Patient awake and asking appropriate questions.
--- NOTE | 2019-12-29 17:44 | DI.CT.S_ITS ---
PROCEDURE: CT ANGIO CHEST PE PROTOCOL INDICATIONS: persistent tachycardia, SOB, hx PE TECHNIQUE: After the administration of intravenous contrast, 2 mm thick sections acquired from the pulmonary apices to the posterior costophrenic angles. 3-dimensional maximum intensity projection (MIP) coronal and sagittal reformats were then acquired through the thorax. For radiation dose reduction, the following was used: automated exposure control, adjustment of mA and/or kV according to patient size. COMPARISON: [facility], CR, XR CHEST 1V, 12/29/2019, 14:02. [facility], CT, CT ANGIO CHEST PE PROTOCOL, 05/09/2018, 17:50. FINDINGS: Image quality: Somewhat suboptimal opacification of central pulmonary arteries. Pulmonary arteries: Pulmonary outflow tract is prominent. No large saddle pulmonary emboli. Small intraluminal filling defects may be present in subsegmental pulmonary arteries bilaterally. Lungs and pleura: Lungs are clear. No pleural effusions or pneumothorax. Central and peripheral airways are patent. Mediastinum: Heart size is normal, without pericardial effusion. No mediastinal or hilar adenopathy. Thoracic aorta is normal in caliber and enhancement. Esophagus is normal in caliber. Small hiatal hernia. Bones and chest wall: No suspicious bony lesions. Ribs and thoracic spine appear intact throughout. Thyroid gland is normal. No axillary or supraclavicular adenopathy. Abdomen: Visualized upper abdominal solid organs appear normal in the early arterial phase of enhancement. IMPRESSION: 1. No large saddle pulmonary emboli. Small subsegmental pulmonary arteries may be present bilaterally. The exam is limited due to somewhat suboptimal opacification of central pulmonary arteries. 2. Cholelithiasis. Dictated by: Steven Byrne M.D. on 12/29/2019 at 18:33 Approved by: Steven Byrne M.D. on 12/29/2019 at 18:45
--- NOTE | 2019-12-29 19:34 | PC.NURSE ---
Looked for second PIV site, did not see anything. ANGIE Frost to look for second IV.
[2019-12-29] MEDS: ESMOLOL 2.5 GM/250 ML IV.SOLN IV (19:44)
--- NOTE | 2019-12-29 22:29 | PC.NURSE ---
2150: Esmolol stopped for purposes of I[facility] documentation. Please see [facility] documentation for continuation of gtt. 2nd bag of Esmolol sent w/ crew as they do not carry on board.
== END 2019-12-29 21:55 | disposition short-term general hospital (02) ==
PROVIDERS: Emergency Provider Emergency Medicine; PCP Family Medicine
DX: L03.116 Cellulitis of left lower limb (principal); I48.20 Chronic atrial fibrillation, unspecified; R06.00 Dyspnea, unspecified; R50.9 Fever, unspecified
CPT/HCPCS: 36415; 71045; 71275; 80053; 82550; 83605; 83690; 83880; 84145; 84484; 85025; 85610; 85730; 87040; 92960; 93005; 93971; 94770; 96365; 96366; 96367; 96375; 99152; 99285; 99291; J2704